=== PATIENT | female | born 1935 | race Caucasian/White ===

== ENCOUNTER 2017-05-15 13:33 | Emergency (ER) | payer BC, OTHER ==
[2017-05-15 13:48] VITALS: BP 126/63; PULSE 80; TEMP 98.6; BMI 28.3
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
== END 2017-05-15 14:49 | disposition home or self-care (01) ==
LOC: FER 13:33
DX: Z76.0 Encounter for issue of repeat prescription (principal); E03.9 Hypothyroidism, unspecified; E78.5 Hyperlipidemia, unspecified; I10 Essential (primary) hypertension
CPT/HCPCS: 99281-25